=== PATIENT | female | born 1965 | race Caucasian/White ===

== ENCOUNTER → 2016-05-24 | Outpatient (CLI) | payer MEDICARE, MEDICAID ==
[2016-05-24 16:52] LABS: BASOPHIL # 0.1 K/uL (0.0-0.2); BASOPHIL % 0.8 %; EOSINOPHIL # 0.4 K/uL (0.0-0.5); EOSINOPHIL % 5.7 %; HEMATOCRIT 44.6 % (33.0-46.0); HEMOGLOBIN 14.8 g/dL (10.0-15.0); IMMATURE GRANULOCYTE % 0.3 %; LYMPHOCYTE # 2.6 K/uL (0.8-4.0); LYMPHOCYTE % 33.6 %; MCH 31.8 pg (27.0-34.0); MCHC 33.2 gm/dL (32.0-36.5); MCV 95.9 fl (83.0-98.0); MONOCYTE # 0.5 K/uL (0.0-1.0); MONOCYTE % 6.5 %; MPV 9.4 fl (9.4-12.4); NEUTROPHIL % 53.1 %; NRBC % 0 /100WBC (0-0.00); PLATELET COUNT 231 K/uL (150-450); RBC 4.65 M/uL (3.50-5.50); WBC 7.6 K/uL (4.0-11.0)
[2016-05-24 17:08] LABS: ALBUMIN 3.8 gm/dL (3.5-5.0); CALCIUM 8.6 mg/dL (8.5-10.5); TOTAL BILIRUBIN 0.5 mg/dL (0.0-1.5); TOTAL PROTEIN 7.1 g/dL (6.0-8.4)
== END | disposition disaster alternative care site (69) ==
LOC: LNHI 16:27
PROVIDERS: Internal Medicine Cardiovascular Disease
DX: I25.10 Atherosclerotic heart disease of native coronary artery without angina pectoris (principal); R07.89 Other chest pain; Z95.2 Presence of prosthetic heart valve; R53.83 Other fatigue